=== PATIENT | female | born 1990 | race Caucasian/White ===

== ENCOUNTER 2019-12-12 00:51 | Inpatient (IN) | payer MEDICAID, SELFPAY ==
[2019-12-12] VITALS (104 sets, daily range): BP systolic 0–185; BP diastolic 0–112; PULSE 68–106; RESP 16–22; TEMP 36.6–37.1; O2SAT 94–98; BMI 49.6
[2019-12-12] MEDS: lactated ringers 1,000 ML 999 ML IV (01:34)
[2019-12-12 01:38] LABS: Basophils # 0.1 10^3/uL (0.0-0.1); Basophils % 0.3 %; Eosinophils # 0.1 10^3/uL (0.0-0.8); Eosinophils % 0.7 %; Hematocrit 33.5 % (37.0-47.0); Hemoglobin 10.7 g/dL (11.5-15.3); Lymphocytes # 2.5 10^3/uL (0.8-4.8); Lymphocytes % 16.8 %; Mean Corpuscular HGB Conc 31.9 g/dL (30.0-36.0); Mean Corpuscular Hemoglobin 26.7 pg (28.0-34.0); Mean Corpuscular Volume 83.5 fL (81-99); Mean Platelet Volume 10.5 fL (7.4-10.4); Monocytes # 0.8 10^3/uL (0.2-0.9); Monocytes % 5.1 %; Neutrophils # 11.2 10^3/uL (1.8-7.7); Neutrophils % 76.1 %; Nucleated Red Blood Cells % 0 %; Platelet Count 269 10^3/cmm (130-400); Red Blood Count 4.01 10^6/uL (4.1-5.3); Red Cell Distribution Width 16.3 % (12.1-15.1); White Blood Count 14.7 10^3/uL (4.0-10.0)
[2019-12-12 02:07] LABS: Amphetamines Screen Urine Negative (Negative); Barbiturates Screen Urine Negative (Negative); Benzodiazepines Screen Urine Negative (Negative); Cocaine Screen Urine Negative (Negative); Opiate Screen Urine Negative (Negative); PCP Screen Urine Negative (Negative); THC Screen Urine Negative (Negative)
[2019-12-12] MEDS: dextrose 5%-lactated ringers 1,000 ML 125 ML IV ×2 (02:39→12:34)
--- NOTE | 2019-12-12 03:21 | P.ANESASSM_ITS ---
Pre-Anesthetic Assessment Pre-Anesthetic Assessment: Height/Weight: Height 1.6 m Weight 127.006 kg Temp Pulse Resp BP Pulse Ox 98.5 F 93 18 132/62 98 12/12/19 01:18 12/12/19 03:17 12/12/19 01:18 12/12/19 03:17 12/12/19 03:16 Preop Diagnosis: Labor Pain Proposed Procedure: Epidural Last Intake: 21:00 Social: Social History: No alcohol and No tobacco Exam: Pre-Anes Outpt Exam: alert, oriented x 3, clear to auscultation bilaterally and regular rate & rhythm Airway: Submandibular: WNL Cervical ROM: WNL MP: 2 Dentition: Full History/ROS: No significant history except as noted and No significant complaints Pulmonary: Pulmonary: None reported CV/HEM: Comments: Recent mild PIH Hepatic: Hepatic: None reported GI: GI: None reported Metabolic: Metabolic: None reported Musc/skel: Musc/skel: None reported Neuropsych: Neuropsych: None reported Anesthetic Plan: ASA status: 2 Anesthesia: Regional (specify below) Other: epidural Risk of > 500 ml blood loss (7ml/kg in children): No Meds/Allergies Current Medications: Current Medications Generic Name Dose Route Start Last Admin Trade Name Freq PRN Reason Stop Dose Admin Dextrose/Lactated Ringer's 1,000 mls @ 125 m ls/hr 12/12/19 01:30 12/12/19 02:39 Dextrose 5%-Lact ated Ringers IV 125 mls/hr .Q8H JAYJAY Administration Lactated Ringer's 1,000 mls @ 999 m ls/hr 12/12/19 01:20 12/12/19 02:39 Lactated Ringers IV Infused .Q1H1M PRN Infusion ANESTHESIA Ropivacaine 200 mg in 100 mls @ 6 mls/hr 12/12/19 01:30 12/12/19 03:12 Naropin Premix EPIDURAL 13 mls/hr .[id number] JAYJAY Infusion PFSH Anesthesia Female Reproductive History: : 4 Data Anesthesia CBC & Chem 7: 12/12/19 01:30 Other Labs: Laboratory Results - last 48 hr 12/12/19 12/12/19 01:30 01:40 WBC 14.7 H RBC 4.01 L Hgb 10.7 L Hct 33.5 L MCV 83.5 MCH 26.7 L MCHC 31.9 RDW 16.3 H Plt Count 269 MPV 10.5 H Neut % (Auto) 76.1 Lymph % (Auto) 16.8 [place] % (Auto) 5.1 Eos % (Auto) 0.7 Baso % (Auto) 0.3 Neut # (Auto) 11.2 H Lymph # (Auto) 2.5 [place] # (Auto) 0.8 Eos # (Auto) 0.1 Baso # (Auto) 0.1 Nucleated RBC % (auto) 0 Nucleated RBCs # 0.0 Urine Opiates Screen Negative Ur Barbiturates Screen Negative Ur Phencyclidine Scrn Negative Ur Amphetamines Screen Negative U Benzodiazepines Scrn Negative Urine Cocaine Screen Negative U Marijuana (THC) Screen Negative Cardiac Studies: No Data to Display
--- NOTE | 2019-12-12 03:27 | ANES.PROC ---
Anesthesia Procedures Procedure/Date: 12/12/19 Epidural: Time Out Performed: Yes Consents Signed: Procedure Consent and No Consent Needed Consent: requested by attending/covering physician, from patient, risks and benefits reviewed and patient agrees to proceed Lumbar Level: L3-L4 Epidural position: sitting Epidural procedure: sterile prep of area, 1% lidocaine to numb the area, 18 g needle, negative for paresthesia passed, test dose given, 1.5% xylocaine 1:200k epi, placed PCEA, no systemic response, sterile dressing applied, L.U.D. no apparent complications and 0.2% Ropiavacaine @ mls/hr Additional Comments: 0311 BUPIV 0.25% Fentanyl 100U total 10cc bolus
[2019-12-12] MEDS: oxytocin 30 UNIT/500 ML BAG 999 UNIT IV (07:31)
--- NOTE | 2019-12-12 07:35 | PM.DELIVERY ---
 Delivery Note: Date of delivery: December 12, 2019 Pre-delivery diagnoses: 29-year-old 4 para 3-0-0-3 39-week female infant arriving in active labor Post-delivery diagnoses: Post spontaneous vaginal delivery Op report anesthesia: Epidural Estimated blood loss (mL): 200 Pre-Delivery Course: The patient is a 29-year-old 4 female who received her care from Dr. Lambert in the [facility] in [facility]. Her had been relatively unremarkable. She did have a history of preeclampsia with her previous . Her labs were also relatively unremarkable. Her blood type was A-. Her antibody screen was positive. But was found to be positive due to a passive antibodies due to receiving RhoGam she was found to be varicella immune rubella immune RPR nonreactive hepatitis B HIV negative and her thyroid was within normal limits. Her chlamydia and gonorrhea were also negative. And her glucose screen was 116 her group B strep was negative please see chart for further details. She arrived to the hospital in active labor. She is having contractions every 2 to 3 minutes. Her cervix was noted to be 7 cm dilated with an intact membranes. She made minimal change despite having consistent painful contractions for several hours. An epidural was placed. An amniotomy was performed. She was then found to be by the nurse. I was on the floor and arrived in the room as the head was being delivered. Delivery: DELIVERY: After arriving in the room the body was completely delivered. I then unwrapped a body cord x1, and I placed the baby on the mother's abdomen. She delivered a male with a weight of [] with Apgars of 9, 9. The baby was delivered from the BLAYNE position. The baby's mouth and nose were suctioned shortly after delivery. The cord was then clamped and cut after waiting for a little more than 1 minute. There was no meconium. The placenta and 3 vessel cord were delivered intact shortly thereafter. The perineum and vaginal vault were carefully examined. No lacerations were noted. Both the mother and the baby were in stable condition. Post-Delivery Status: Stable Coding Level of Care Code Acute Wood Drilling Machine Operator for Lauri Hunter
--- NOTE | 2019-12-12 07:50 | PM.OBGYHP ---
Providers/Chief Complaint Admitting Physician: Mo Song MD Primary CARTOGRAPHY PROFESSOR: Dr. Lambert Chief Complaint: CONTRACTIONS HPI CARTOGRAPHY PROFESSOR History of Present Illness Samina Espinoza is a 29 year old 4 para 3-0-0-3 female. She had an unremarkable . Her care was provided by Dr. Lambert. She began having contractions on the day prior to delivery. They then progressed to the point that they are happening we 5 minutes and she arrived at the hospital and was found to be in active labor. Present Details : 4 Para: 3 Labs Rubella: Immune RPR: Negative GBS: Negative Review of Systems General: Reports: 10 or more systems reviewed and unremarkable except in HPI and below Const: Reports: fatigue; Denies: fever Eyes: Denies: change in vision Card: Denies: chest pain Musc: Reports: back pain Dick/Lymph: Denies: easy bruising Medications/Allergies Allergies Allergy/AdvReac Type Severity Reaction Status Date / Time No Known Allergies Allergy Verified 12/12/19 01:41 [facility] CARTOGRAPHY PROFESSOR Medical History (Updated 12/14/19 @ 00:01 by ) Preeclampsia Vaginal delivery Social History (Updated 12/12/19 @ 07:54 by Mo Song MD) Smoking and tobacco status: never smoked Substance/Drug Use: never Household members: spouse and children Vitals/I&O/Wt Last Vital Signs Temp 98.1 F 12/12/19 05:30 Pulse 68 12/12/19 07:48 Resp 20 H 12/12/19 05:30 BP 156/112 12/12/19 07:48 Pulse Ox 97 12/12/19 03:26 12/11/19 12/12/19 12/12/19 22:59 06:59 14:59 Intake Total 1000 / 1000 Output Total 150 / 150 Balance 850 / 850 Weight last 48 hrs Weight 280 lb Physical Exam Const: COMMON NORMALS: oriented x3 and alert HENMT: COMMON NORMALS: moist oral mucous membranes HEAD & SCALP: normal to inspection Chest: COMMONS NORMALS: inspection of chest normal Resp: COMMON NORMALS: clear to auscultation bilaterally AUSCULTATION: clear to auscultation bilaterally Cardio: COMMON NORMALS: regular rate and regular rhythm RATE: regular rate RHYTHM: regular rhythm GI: INSPECTION: Yes normal to inspection and Yes other (Gravid) Extremity: COMMON NORMALS: normal to inspection GENERAL: Yes edema (Trace) Neuro: COMMON NORMALS: oriented x3, moves all extremities and no sensory deficits noted SENSORIUM/ORIENTATION: Yes alert Psych: COMMON NORMALS: mental status grossly normal Skin: COMMON NORMALS: no rashes or lesions noted GENERAL SKIN EXAM: no rashes or lesions noted Urinary Catheter Management^: Villatoro: Cath Placed During This Visit: yes Urethral Indwelling: No Urinary Catheter Date of Insertion: 12/12/19 Urinary Catheter Time of Insertion: 03:30 Data : 12/12/19 19:15 12/12/19 10:17 Attestations Medical Necessity Statement*: I anticipate routine vaginal delivery and care. Coding Level of Care Code Acute File Drawer Finisher for Lauri Hunter Exam Problem Focused
[2019-12-12] MEDS: benzocaine-menthol 78 gm Canister 1 SPRAY TOPICAL ×2 (09:58→21:09)
[2019-12-12] MEDS: prenatal vitamin Capsule 1 CAP PO (09:58)
[2019-12-12] MEDS: lanolin oint 7 gm 1 APPLIC TOPICAL (09:58)
[2019-12-12] MEDS: docusate sodium 100 mg Capsule PO ×2 (09:58→18:04)
[2019-12-12 10:03] LABS: Add Urine Microscopic? YES; Bilirubin Urine Neg (NEGATIVE); Blood Urine 2+ (Negative); Glucose Urine UA Norm (Normal); Ketones Urine Negative (Negative); Leukocyte Esterase Urine Negative (Negative); Nitrate Urine Negative (Negative); Protein Urine 2+ (Negative); Specific Gravity, Urine 1.025 (1.005-1.030); Urine Appearance SL Hazy (CLEAR); Urine Color Straw (Yellow); Urobilinogen Urine Norm (Negative)
[2019-12-12 10:04] LABS: Bacteria Urine 2+; Calcium Oxalate Crystals Urine 0-4 /hpf; WBC Urine 0-4 /hpf (0-5)
[2019-12-12 10:05] LABS: Add Urine Culture? Yes
[2019-12-12 10:27] LABS: Basophils % 0.1 %; Eosinophils % 0.1 %; Hematocrit 33.4 % (37.0-47.0); Hemoglobin 10.4 g/dL (11.5-15.3); Lymphocytes # 1.9 10^3/uL (0.8-4.8); Lymphocytes % 10.3 %; Mean Corpuscular HGB Conc 31.1 g/dL (30.0-36.0); Mean Corpuscular Hemoglobin 26.7 pg (28.0-34.0); Mean Corpuscular Volume 85.6 fL (81-99); Mean Platelet Volume 10.4 fL (7.4-10.4); Monocytes # 0.5 10^3/uL (0.2-0.9); Monocytes % 2.4 %; Neutrophils % 86.3 %; Nucleated Red Blood Cells % 0 %; Platelet Count 258 10^3/cmm (130-400); Red Cell Distribution Width 16.4 % (12.1-15.1); White Blood Count 18.5 10^3/uL (4.0-10.0)
[2019-12-12 10:27] LABS: Urine Creatinine 121 mg/dL (28-217)
[2019-12-12 10:28] LABS: UPRO/UCREAT Ratio 1.37 mg/mg CR; Urine Protein Random 166 mg/dL
[2019-12-12 10:50] LABS: Alanine Aminotransferase 15 U/L (0-33); Albumin Level 2.6 g/dL (3.5-5.2); Alkaline Phosphatase 115 IU/L (35-105); Aspartate Amino Transferase 23 U/L (0-32); Blood Urea Nitrogen 7 mg/dL (6-20); Calcium 9.4 mg/dL (8.5-10.5); Carbon Dioxide 19 mmol/L (22-29); Chloride 102 mmol/L (98-107); Glomerular Filtration Rate 146.9 mL/min (90-130); Glucose 150 mg/dL (65-115); Sodium 135 mmol/L (136-145); Total Bilirubin 0.2 mg/dL (0.15-1.2); Total Protein 6.6 g/dL (6.6-8.7); Uric Acid 5.1 mg/dL (2.4-5.7)
--- NOTE | 2019-12-12 12:15 | PC.NURSE ---
pt ambulated to room 203, report given to Wild Cedillo to assume care
[2019-12-12] MEDS: magnesium sulfate premix 4 GM/100 ML PREMIX IV (12:34)
[2019-12-12] MEDS: magnesium sulfate premix 20 GM/500 ML BAG IV (12:57)
[2019-12-12] MEDS: labetalol 200 mg Tablet 100 MG PO (18:03)
[2019-12-12 19:26] LABS: Hematocrit 30.4 % (37.0-47.0); Hemoglobin 9.5 g/dL (11.5-15.3); Mean Corpuscular HGB Conc 31.3 g/dL (30.0-36.0); Mean Corpuscular Hemoglobin 27.1 pg (28.0-34.0); Mean Corpuscular Volume 86.9 fL (81-99); Mean Platelet Volume 10.5 fL (7.4-10.4); Platelet Count 227 10^3/cmm (130-400); Red Cell Distribution Width 16.9 % (12.1-15.1); White Blood Count 13.6 10^3/uL (4.0-10.0)
[2019-12-13 01:00] VITALS: BP 120/78; PULSE 91; RESP 18; TEMP 36.8; O2SAT 97
[2019-12-13 05:00] VITALS: BP 119/74; PULSE 76; RESP 18; TEMP 36.6
--- NOTE | 2019-12-13 08:45 | PM.OBGYDC ---
Discharge Providers SALES REPRESENTATIVE ADDING MACHINES Date of Admission: 12/12/19 00:51 Date of Discharge: 12/13/19 Attending Provider at Admission: Mo Song MD Attending Provider at Discharge: Mo Song MD Primary SALES REPRESENTATIVE ADDING MACHINES: Dr. Lambert Diagnoses at Discharge Discharge Diagnosis (1) 38 weeks gestation of : Status: Acute Reason for Visit Reason for Visit: Reason For Visit: CONTRACTIONS Hospital Course Hospital Course: The patient presented to the hospital in active labor. She received an epidural. An amniotomy was performed. She progressed to complete and had an unremarkable delivery. Her course was remarkable for having increasing pressures. When her blood pressure increased to a systolic greater than 160, I did a preeclamptic panel on her. Her protein creatinine ratio was greater than 1. The remainder of her preeclamptic panel was negative. She was placed on magnesium sulfate for 12 hours post delivery. She was also placed on labetalol 100 mg twice daily. Her blood pressures were well controlled with those interventions. She had no other symptoms of preeclampsia. Her urine output was excellent. Information Peripartum Data: Delivery Method: Vaginal Physical Exam Const: COMMON NORMALS: oriented x3 and alert HENMT: COMMON NORMALS: moist oral mucous membranes HEAD & SCALP: normal to inspection Chest: COMMONS NORMALS: inspection of chest normal Resp: COMMON NORMALS: clear to auscultation bilaterally AUSCULTATION: clear to auscultation bilaterally Cardio: COMMON NORMALS: regular rate and regular rhythm RATE: regular rate RHYTHM: regular rhythm GI: INSPECTION: Yes normal to inspection and Yes other (Gravid) Extremity: COMMON NORMALS: normal to inspection GENERAL: Yes edema (Trace) Neuro: COMMON NORMALS: oriented x3, moves all extremities and no sensory deficits noted SENSORIUM/ORIENTATION: Yes alert Psych: COMMON NORMALS: mental status grossly normal Skin: COMMON NORMALS: no rashes or lesions noted GENERAL SKIN EXAM: no rashes or lesions noted Urinary Catheter Management^: Villatoro: Cath Placed During This Visit: yes Urethral Indwelling: No Urinary Catheter Date of Insertion: 12/12/19 Urinary Catheter Time of Insertion: 03:30 Discharge Data Data Completed and Pending: Pending at discharge Category Date Time Status Urine Culture Sta t Lab 12/12/19 01:40 Received Labs from last 24 hours 02/14/20 02/14/20 02/14/20 19:15 10:17 10:17 WBC 13.6 H 18.5 H RBC 3.50 L 3.90 L Hgb 9.5 L 10.4 L Hct 30.4 L 33.4 L MCV 86.9 85.6 MCH 27.1 L 26.7 L MCHC 31.3 31.1 RDW 16.9 H 16.4 H Plt Count 227 258 MPV 10.5 H 10.4 Neut % (Auto) 86.3 Lymph % (Auto) 10.3 [place] % (Auto) 2.4 Eos % (Auto) 0.1 Baso % (Auto) 0.1 Neut # (Auto) 16.0 H Lymph # (Auto) 1.9 [place] # (Auto) 0.5 Eos # (Auto) 0.0 Baso # (Auto) 0.0 Nucleated RBC % (a uto) 0 Nucleated RBCs # 0.0 Sodium 135 L Potassium 4.0 Chloride 102 Carbon Dioxide 19 L Anion Gap 18.0 BUN 7 Creatinine 0.5 GFR Calculation 146.9 H Glucose 150 H Uric Acid 5.1 Calcium 9.4 Total Bilirubin 0.2 AST 23 ALT 15 Alkaline Phosphata se 115 H Total Protein 6.6 Albumin 2.6 L Globulin 4.0 Urine Color Urine Appearance Urine pH Ur Specific Gravit y Urine Protein Urine Glucose (UA) Urine Ketones Urine Occult Blood Urine Nitrate Urine Bilirubin Urine Urobilinogen Ur Leukocyte Kesha ase Urine RBC Urine WBC Ur Squamous Epith Cells Calcium Oxalate Cr ystal Urine Bacteria U Random Total Pro tein Urine Creatinine Protein/Creatinin Ratio 12/12/19 12/12/19 01:40 01:40 WBC RBC Hgb Hct MCV MCH MCHC RDW Plt Count MPV Neut % (Auto) Lymph % (Auto) [place] % (Auto) Eos % (Auto) Baso % (Auto) Neut # (Auto) Lymph # (Auto) [place] # (Auto) Eos # (Auto) Baso # (Auto) Nucleated RBC % (a uto) Nucleated RBCs # Sodium Potassium Chloride Carbon Dioxide Anion Gap BUN Creatinine GFR Calculation Glucose Uric Acid Calcium Total Bilirubin AST ALT Alkaline Phosphata se Total Protein Albumin Globulin Urine Color Straw Urine Appearance Sl hazy Urine pH 5.0 Ur Specific Gravit y 1.025 Urine Protein 2+ H Urine Glucose (UA) Norm Urine Ketones Negative Urine Occult Blood 2+ H Urine Nitrate Negative Urine Bilirubin Neg Urine Urobilinogen Norm Ur Leukocyte Kesha ase Negative Urine RBC None Urine WBC 0-4 H Ur Squamous Epith Cells 5-10 H Calcium Oxalate Cr ystal 0-4 H Urine Bacteria 2+ H U Random Total Pro tein 166 Urine Creatinine 121 Protein/Creatinin Ratio 1.37 Vitals: Last Vital Signs Temp 97.9 F 12/13/19 05:00 Pulse 76 12/13/19 05:00 Resp 18 12/13/19 05:00 BP 119/74 12/13/19 05:00 Pulse Ox 97 12/13/19 01:00 Discharge Plan Discharge Patient Disposition: Home, Self-Care Condition: Stable Prescriptions: New labetalol 200 mg Tablet 100 mg PO BID Qty: 60 RF: 0 -U 106.5-1 mg Capsule 1 cap PO DAILY Qty: 90 RF: 0 hydrocodone-acetaminophen 5-325 mg Tablet 1 - 2 tab PO Q6H PRN (Reason: Moderate To Severe Pain) Qty: 10 RF: 0 Discharge Orders: Discharge Order (Routine); Ordered 12/13/19 Ordered By: Mo Song Referrals: Susannah Lambert DO [Staff Physician] - 4-7 days Patient Instructions: , Vitamins (By mouth), How to Increase Your Milk Supply (DC), Vaginal Delivery (DC), OB Discharge Report, OB Food/Drug Interaction Guide, OB Care at Home, OB Home Care, OB Proud Parent Packet, OB Vaginal Deliveries Discharge Attestations SALES REPRESENTATIVE ADDING MACHINES Time Spent in Discharge Care*: greater than 30 min Coding Level of Care Code Acute Shaker Tender for Chg Fwd Exam Detailed Diagnoses 38 weeks gestation of Z3A.38
[2019-12-13] MEDS: prenatal vitamin Capsule 1 CAP PO (09:10)
[2019-12-13] MEDS: docusate sodium 100 mg Capsule PO (09:10)
[2019-12-13] MEDS: labetalol 200 mg Tablet 100 MG PO (09:10)
[2019-12-13 09:15] VITALS: BP 132/79; PULSE 99; RESP 16; TEMP 36.4
[2019-12-13] MEDS: acetaminophen 500 mg Tablet 1000 MG PO (12:34)
[2019-12-13 13:45] VITALS: BP 131/76; PULSE 97; RESP 16; TEMP 36.9
== END 2019-12-13 14:27 | disposition home or self-care (01) | DRG 807 ==
LOC: OPOB 01:04 → OBGYN 01:05 → OPOB 01:15
PROVIDERS: Admitting Provider Family Medicine; Family Provider Nurse Practitioner Family; Visit Provider Family Medicine
DX: O69.82X0 Labor and delivery complicated by other cord entanglement, without compression, not applicable or unspecified (principal); Z37.0 Single live birth; Z3A.38 38 weeks gestation of pregnancy
CPT/HCPCS: 12345; 36415; 51702; 59025; 59409; 80053; 80307; 81001; 82570; 84156; 84550; 85025; 85027; 87086; 90471; 90686; 96374; 98960; 99211; J2795; J3010; J3475; J3490

== ENCOUNTER → 2020-03-28 09:21 | Outpatient (BNVA) | payer MEDICAID, SELFPAY | PROVIDERS: Family Provider Nurse Practitioner Family; Visit Provider Nurse Practitioner Family | DX: R39.9 Unspecified symptoms and signs involving the genitourinary system (principal); R10.32 Left lower quadrant pain | CPT/HCPCS: 81000 ==

== ENCOUNTER 2025-06-14 17:15 | Emergency (ER) | payer BC, SELFPAY ==
--- NOTE | 2025-06-14 17:17 | XRR_ITS ---
PROCEDURE INFORMATION: Exam: XR Chest Exam date and time: 06/14/2025 5:39 PM Age: 35 years old Clinical indication: Pain; Chest pressure; Additional info: Chest pain TECHNIQUE: Imaging protocol: Radiologic exam of the chest. Views: 1 view. COMPARISON: No relevant prior studies available. FINDINGS: Lungs: Unremarkable. No consolidation. Pleural spaces: Unremarkable. No pleural effusion. No pneumothorax. Heart/Mediastinum: Unremarkable. No cardiomegaly. Bones/joints: Unremarkable. XR/XR chest 1V portable [id number] IMPRESSION: No acute findings.
--- NOTE | 2025-06-14 17:17 | ECG_ITS ---
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 Measurements Intervals [place] Rate: 87 P: 49 NH: 134 QRS: 19 QRSD: 89 T: 10 QT: 342 QTc: 412 Interpretive Statements SINUS RHYTHM No previous ECG available for comparison Electronically Signed On 06-14-2025 17:46:34 CDT by Eugenio Flowers M.D. [email or web address]
[2025-06-14 17:25] VITALS: BP 154/106; PULSE 90; RESP 18; TEMP 37.1; O2SAT 98
[2025-06-14 17:46] LABS: Hematocrit 38.6 % (36-47); Hemoglobin 13.00 g/dL (11.27-16.99); Mean Corpuscular HGB Conc 33.7 g/dL (30-55); Mean Corpuscular Hemoglobin 27.9 pg (27-33); Mean Corpuscular Volume 82.8 fl (85-98); Nucleated Red Blood Cells % 0 %; Platelet Count 312 10^3/cmm (157-399); Red Blood Count 4.66 10^6/uL (3.85-5.65); White Blood Count 12.73 10^3/uL (3.29-11.43)
[2025-06-14 18:00] LABS: HCG, Serum Qual Negative (Negative)
[2025-06-14] MEDS: LORazepam 1 MG/0.5 ML injection IVP (18:00)
[2025-06-14 18:01] VITALS: BP 142/90; PULSE 74; O2SAT 96
[2025-06-14 18:09] LABS: Troponin(5th) Baseline < 6 ng/L (0-10)
[2025-06-14 18:12] LABS: Alanine Aminotransferase 14 U/L (0-33); Albumin Level 4.4 g/dL (3.5-5.2); Alkaline Phosphatase 72 U/L (35-105); Anion Gap 18.2 (5-19); Aspartate Amino Transferase 11 U/L (0-32); Blood Urea Nitrogen 12 mg/dL (6-20); Calcium 9.4 mg/dL (8.5-10.5); Carbon Dioxide 23 mmol/L (22-29); Chloride 102 mmol/L (98-107); Creatinine Clr Calc Pharmacy 152.2298; Globulin 2.7 g/dL (1.3-4.6); Glucose 93 mg/dL (65-115); Lipase 33 U/L (13-60); Osmolality Calculated 289 mOsm/kg (285-295); Potassium 3.2 mmol/L (3.5-5.1); Sodium 140 mmol/L (136-145); Total Protein 7.1 g/dL (6.6-8.7)
[2025-06-14 18:52] VITALS: BP 155/63; PULSE 77; O2SAT 95
--- NOTE | 2025-06-14 18:56 | W.ED.CHESTPA ---
HPI - Chest Pain General: Chief Complaint: Chest Pain Stated Complaint: Chest pain Time Seen by Provider: 06/14/25 17:36 Source: patient Mode of arrival: ambulatory Limitations: no limitations History of Present Illness: Patient is a 35-year-old female who presents the emergency department with complaints of palpitations for about a month. States today she also had onset of chest pain shortness of breath. She has chronic history of anxiety for years, takes Wellbutrin and BuSpar but states she takes them frequently. Notes that she has been in a significant amount of stress recently. She has never seen cardiology and has never worn a Holter monitor, she describes the palpitations as lasting for about an hour at a time, and recently have become stronger and she feels that her heart is going to beat out of her chest. She tries breathing exercises but states that she is unable to stop the palpitations. States that the chest pain she had today is central but radiates down her left arm. Denies any pertinent past medical history in regards to cardiac, and has no history of sudden cardiac in her family. Reports that the pain feels like a pressure. She was seen at [facility] within the last week for the same issue. She is notably anxious at this time, hypertensive at time of exam. MD complaint: chest heaviness Onset (ago): day(s) Timing of current episode: constant Prior episodes: No Pain location: substernal Pain radiation: left arm Severity: moderate Quality: heaviness Exacerbating factors: stress Associated symptoms: Reports dyspnea and palpitations; Deny abdominal pain, fever(s), nausea or vomiting Related Data Home Medications ?Medication ?Instructions ?Recorded ?Confirmed No Known Home Medications 03/28/20 03/28/20 Allergies Allergy/AdvReac Type Severity Reaction Status Date / Time guaifenesin Allergy Unknown Verified 06/14/25 17:28 Review of Systems General: Reports: 10 or more systems reviewed and unremarkable except in HPI and below Const: Denies: fever(s), chills or fatigue Eyes: Denies: change in vision ENMT: Denies: throat pain, ear or mastoid pain or nasal discharge Card: Reports: chest pain and palpitations; Denies: swelling of feet/ankles or lightheadedness Resp: Reports: dyspnea; Denies: productive cough or wheezing GI: Denies: abdominal pain, nausea, vomiting, diarrhea or constipation : Denies: flank pain, difficulty voiding, dysuria or urinary frequency Musc: Denies: neck pain, back pain or joint pain Skin/Breast: Denies: rash Neuro: Denies: headache(s), numbness in extremities or weakness in extremities Psych: Reports: anxiety PFSH ED PFSH: Medical History Preeclampsia Vaginal delivery Social History Smoking and tobacco/nicotine status: never used tobacco/nicotine Substance/Drug Use: never Household members: spouse and children Physical Exam Const: COMMON NORMALS: no acute distress, patient oriented x3 and no limitations GENERAL APPEARANCE: cooperative, well developed and anxious ORIENTATION/CONSCIOUSNESS: Yes awake, Yes oriented to person, Yes oriented to place and Yes oriented to time HENMT: COMMON NORMALS: normocephalic, atraumatic and hearing grossly normal bilaterally HEAD & SCALP: normocephalic and atraumatic Eye: COMMON NORMALS: Equal, round and reactive pupils present, EOMs intact bilaterally and conjunctivae normal CONJUNCTIVA: Yes conjunctivae normal PUPIL: Yes Equal, round and reactive pupils present Neck/C-Spine: COMMON NORMALS: full ROM, supple and no JVD Resp: COMMON NORMALS: normal respiratory effort, No retractions, No use of accessory muscles and clear to auscultation bilaterally AUSCULTATION: clear to auscultation bilaterally Cardio: COMMON NORMALS: no JVD, regular rate, regular rhythm, No clicks present (Cardio), No murmurs present (Cardio) and No rub (Cardio) RATE: regular rate RHYTHM: regular rhythm GI: COMMON NORMALS: Normal to inspection, nondistended, normoactive bowel sounds present, Soft to palpation and non-tender AUSCULTATION: Yes normoactive bowel sounds PALPATION: Yes Soft to palpation RECTAL EXAM: deferred Extremity: COMMON NORMALS: normal to inspection, full ROM and capillary refill normal Neuro: COMMON NORMALS: patient oriented x3, moves all extremities, no focal motor deficits and no sensory deficits noted SENSORIUM/ORIENTATION: Yes oriented to person, Yes oriented to place and Yes oriented to time Psych: COMMON NORMALS: mental status grossly normal and Normal thought process present THOUGHT PROCESS: Normal thought process present Skin: COMMON NORMALS: no rashes or lesions noted GENERAL SKIN EXAM: no rashes or lesions noted Course Vital Signs: Vital signs: Vital Signs Temperature 98.7 F 06/14/25 17: Pulse Rate 77 06/14/25 18:52 Respiratory Rate 18 06/14/25 17:25 Blood Pressure 155/63 06/14/25 18:52 Pulse Oximetry 95 06/14/25 18:52 Oxygen Delivery Me thod Room Air 06/14/25 18:01 MDM - Chest Pain Medical Decision Making Patient presenting with palpitations for a month associate with chest pain shortness of breath today. See HPI for details. No cardiac history personally, was seen recently at several hospital for this. She notes increased amount of stress in her life recently, her exam was unremarkable other than she is notably anxious and tearful. She takes BuSpar and will be tried but states that she has had issues with taking this infrequently, does not see counselor, psychiatrist. EKG showing normal sinus rhythm with no acute ST segment changes or arrhythmias. Her lab work was completely normal including negative troponin. Chest x-ray also unremarkable for any acute cardiopulmonary process. Blood pressure noted to gradually decrease throughout ED stay, I suspect the elevation is secondary to anxiety. I suspect that her symptoms are anxiety and depression related, she is strongly encouraged to take her medication as prescribed and closely follow-up with her primary care provider to discuss medication compliance and reconciliation. She also notes quite a bit of relief from 1 mg of Ativan through the IV, stating that she now has an appetite and feels like she could sleep. I will refer her to cardiology just to have outpatient evaluation, may benefit from echocardiogram and stress test due to her symptoms. She may also benefit from Holter monitor with cardio. She is given return precautions, ultimately encouraged to follow-up. She agrees with this plan. Lab Data 06/14/25 17:41 06/14/25 17:41 Laboratory Results WBC 12.73 10^3/uL (3.29-11.43) H 06/14/25 17:41 RBC 4.66 10^6/uL (3.85-5.65) 06/14/25 17:41 Hgb 13.00 g/dL (11.27-16.99) 06/14/25 17:41 Hct 38.6 % (36-47) 06/14/25 17:41 MCV 82.8 fl (85-98) L 06/14/25 17:41 MCH 27.9 pg (27-33) 06/14/25 17: MCHC 33.7 g/dL (30-55) 06/14/25 17:41 RDW 13.7 % (12.1-15.1) 06/14/25 17:41 Plt Count 312 10^3/cmm (157-399) 06/14/25 17: MPV 10.1 fL (7.4-10.4) 06/14/25 17:41 Neut % (Auto) 71.5 % 06/14/25 17:41 Lymph % (Auto) 21.8 % 06/14/25 17:41 [place] % (Auto) 5.6 % 06/14/25 17:41 Eos % (Auto) 0.5 % 06/14/25 17:41 Baso % (Auto) 0.4 % 06/14/25 17:41 Neut # (Auto) 9.11 10^3/uL (1.8-7.7) H 06/14/25 17:41 Lymph # (Auto) 2.8 10^3/uL (0.8-4.8) 06/14/25 17:41 [place] # (Auto) 0.7 10^3/uL (0.2-0.9) 06/14/25 17:41 Eos # (Auto) 0.1 10^3/uL (0.0-0.8) 06/14/25 17:41 Baso # (Auto) 0.1 10^3/uL (0.0-0.1) 06/14/25 17:41 Nucleated RBC % (auto) 0 % 06/14/25 17:41 Nucleated RBCs # 0.0 /100WBC 06/14/25 17:41 Sodium 140 mmol/L (136-145) 06/14/25 17:41 Potassium 3.2 mmol/L (3.5-5.1) L 06/14/25 17:41 Chloride 102 mmol/L (98-107) 06/14/25 17:41 Carbon Dioxide 23 mmol/L (22-29) 06/14/25 17:41 Anion Gap 18.2 (5-19) 06/14/25 17:41 BUN 12 mg/dL (6-20) 06/14/25 17:41 Creatinine 0.6 mg/dL (0.5-0.9) 06/14/25 17:41 GFR Calculation 114.4 mL/min (90-130) 06/14/25 17:41 Glucose 93 mg/dL (65-115) 06/14/25 17:41 Calculated Osmolality 289 mOsm/kg (285-295) 06/14/25 17:41 Calcium 9.4 mg/dL (8.5-10.5) 06/14/25 17:41 Total Bilirubin 0.4 mg/dL (0.15-1.2) 06/14/25 17:41 AST 11 U/L (0-32) 06/14/25 17:41 ALT 14 U/L (0-33) 06/14/25 17:41 Alkaline Phosphatase 72 U/L (35-105) 06/14/25 17:41 Troponin T Baseline < 6 ng/L (0-10) 06/14/25 17:41 Total Protein 7.1 g/dL (6.6-8.7) 06/14/25 17:41 Albumin 4.4 g/dL (3.5-5.2) 06/14/25 17:41 Globulin 2.7 g/dL (1.3-4.6) 06/14/25 17:41 Lipase 33 U/L (13-60) 06/14/25 17:41 HCG, Qual Negative (Negative) 06/14/25 17:41 No radiology studies performed this visit Discharge Plan Discharge Patient Disposition: Home Clinical Impression: Palpitations, Anxiety with depression Condition: Stable Prescriptions: No Action No Known Home Medications Discharge Orders: Discharge ED (Routine); Ordered 06/14/25 Ordered By: Guille Jensen Referrals: Danielle Lambert FNP [Primary Care Provider, Nurse Practitioner] Patient Instructions: Patient Portal & [facility]io Instructions Activity Restrictions/Additional Instructions: Discharge Instructions: Anxiety-Related Chest Pain Discharge Instructions for 35-year-old Female: Chest Pain, Palpitations, and Shortness of Breath Attributed to Anxiety/Depression - Summary of Hospital Course: Patient presented with palpitations, chest pain, and shortness of breath. Full cardiac workup (including ECG, cardiac biomarkers, and imaging as indicated) was normal. Symptoms resolved with 1 mg IV lorazepam (Ativan). No evidence of acute coronary syndrome, arrhythmia, or other cardiac pathology. Symptoms attributed to anxiety and depression. - Diagnosis: Noncardiac chest pain, palpitations, and dyspnea likely secondary to anxiety and depression. - Medications: Discharged with a limited supply of oral Ativan (lorazepam) for breakthrough anxiety only. - Dosage: Use only as prescribed, for acute episodes of severe anxiety. Do not exceed prescribed dose or frequency. - Precautions: - Ativan is for short-term, intermittent use only. - Risk of dependence and withdrawal increases with prolonged or frequent use. - Use with caution if history of substance use disorder, respiratory compromise, or hepatic impairment. - Monitor for paradoxical reactions (agitation, aggression); discontinue if these occur. - Ativan is not a substitute for ongoing management of depression; ensure antidepressant therapy is optimized. - Follow-Up: - Cardiology: Outpatient referral for further cardiac evaluation per [employer] [employer] recommendations for low-risk chest pain. - Primary Care/Behavioral Health: Strongly encourage prompt follow-up with regular provider to review and optimize anxiety/depression management. Consider referral for cognitive-behavioral therapy, which has demonstrated efficacy in reducing chest pain frequency and improving psychological symptoms. - Lifestyle and Supportive Measures: - Engage in regular physical activity as tolerated. - Practice stress reduction techniques (e.g., mindfulness, relaxation exercises). - Avoid known triggers (caffeine, stimulants, illicit drugs). - Maintain adherence to prescribed psychiatric medications. - Strict Return Precautions: Seek immediate medical attention for any of the following: - New or worsening chest pain, especially if associated with exertion, diaphoresis, nausea, or radiation to arm/jaw. - Syncope or near-syncope. - Palpitations associated with lightheadedness, presyncope, or sustained rapid heart rate. - Severe shortness of breath, new onset or worsening. - Neurological symptoms (confusion, weakness, speech difficulty). - Signs of Ativan overdose (excessive sedation, confusion, respiratory depression). - Suicidal ideation or intent, or worsening depression. - Education and Reassurance: Prognosis for noncardiac chest pain due to anxiety/depression is generally favorable, with low risk of cardiac complications. Ongoing symptoms should be addressed with behavioral health interventions and regular follow-up. References: [place] [employer] [employer] guidelines for chest pain evaluation and management; FDA labeling for Ativan (lorazepam); [employer] review of palpitations; [employer] review of psychocardiology. Print Language: Irish Coding Level of Care Code ED Hot Room Attendant for Lauri Hunter
--- NOTE | 2025-06-17 08:49 | DCPLANNER ---
Message sent to Cardiology for follow up-Patient presenting with palpitations for a month associate with chest pain shortness of breath today. See HPI for details. No cardiac history personally, was seen recently at several hospital for this. She notes increased amount of stress in her life recently, her exam was unremarkable other than she is notably anxious and tearful. She takes BuSpar and will be tried but states that she has had issues with taking this infrequently, does not see counselor, psychiatrist. EKG showing normal sinus rhythm with no acute ST segment changes or arrhythmias. Her lab work was completely normal including negative troponin. Chest x-ray also unremarkable for any acute cardiopulmonary process. Blood pressure noted to gradually decrease throughout ED stay, I suspect the elevation is secondary to anxiety. I suspect that her symptoms are anxiety and depression related, she is strongly encouraged to take her medication as prescribed and closely follow-up with her primary care provider to discuss medication compliance and reconciliation. She also notes quite a bit of relief from 1 mg of Ativan through the IV, stating that she now has an appetite and feels like she could sleep. I will refer her to cardiology just to have outpatient evaluation, may benefit from echocardiogram and stress test due to her symptoms. She may also benefit from Holter monitor with cardio. She is given return precautions, ultimately encouraged to follow-up. She agrees with this plan.
== END 2025-06-14 18:55 | disposition home or self-care (01) ==
PROVIDERS: Emergency Medicine; Emergency Provider Physician Assistant; PCP Nurse Practitioner Family
DX: R00.2 Palpitations (principal); F41.9 Anxiety disorder, unspecified; F32.A Depression, unspecified
CPT/HCPCS: 36415; 71045; 80053; 83690; 84484; 84703; 85025; 93005; 96374; 99285; J2060

== ENCOUNTER → 2025-08-25 14:02 | Outpatient (BNVA) | payer BC, SELFPAY | PROVIDERS: PCP Nurse Practitioner Family; Visit Provider Internal Medicine Cardiovascular Disease | DX: E87.6 Hypokalemia (principal); R00.2 Palpitations | CPT/HCPCS: 36415; 80048; 83735; 84443 ==